=== PATIENT | male | born 1995 | race Caucasian/White ===

== ENCOUNTER 2018-12-03 14:29 | Emergency (ER) | payer MEDICAID, SELFPAY ==
[2018-12-03] VITALS (12 sets, daily range): BP systolic 134–171; BP diastolic 79–112; PULSE 72–99; RESP 14–18; TEMP 36.9; O2SAT 98–100; BMI 24.0
--- NOTE | 2018-12-03 15:09 | ED.VISSUMM ---
- ER Visit Summary Date of Service: 12/03/18 Chief Complaint: Depressed and suicidal ideation and attempt History of Present Illness: The patient is a 23 M history of bipolar, ADHD and depression. Also history of drug abuse including methamphetamines, heroin and acid. Patient states he has been more depressed lately. Today he was trying to hang himself when Associates and found him and called the rubber goods assembler department. He brought them in. He said in the past he has cut himself. He has had no prior attempts. Physical Examination: Young male no acute distress. Vital signs are stable afebrile. He is tearful. HEENT exam unremarkable. His neck is no signs of trauma nor any tenderness. There is no bruising. Minimal goldstein. Lungs clear to auscultation bilaterally. Heart regular rhythm no murmur. Chest nontender. Abdomen soft nontender. Extremities moves all 4. Neurovascular intact. No acute trauma. Old scars on his forearm from prior lacerations that are now well-healed. Back nontender. Neurologically he is awake alert with no focal motor deficits. Test Results: CBC normal. White count 7. Hemoglobin 14. Chemistries unremarkable. Normal gap of 8. Alcohol level negative. 5. Tox pending. Emergency Department Course and Treatment: ED mental health laboratory work-up and crisis evaluation Patient doing well repeat exam at 1633. He is Garo been evaluated by crisis is making arrangements for him to be transferred to a psychiatric facility. Treatment Plan: [] Disposition: [] Impression: Acute exacerbation of bipolar disorder Acute suicide attempt by hanging This note was generated with [employer] dictation software. It may contain incorrect words, spelling, and punctuation that were not noted in review of the chart prior to signing ED Disposition - Plan for ED Patient: Referrals: Jg Morataya MD [Primary Care Provider] -
--- NOTE | 2018-12-03 15:09 | NURSING ---
CALLED [facility]. LEFT MESSAGE
--- NOTE | 2018-12-03 15:15 | ED.DCSUM_ITS ---
- ER Visit Summary Date of Service: 12/03/18 Chief Complaint: Depressed and suicidal ideation and attempt History of Present Illness: The patient is a 23 M history of bipolar, ADHD and depression. Also history of drug abuse including methamphetamines, heroin and acid. Patient states he has been more depressed lately. 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 He brought them in. He said in the past he has cut himself. He has had no prior attempts. Physical Examination: Young male no acute distress. Vital signs are stable afebrile. He is tearful. HEENT exam unremarkable. His neck is no signs of trauma nor any tenderness. There is no bruising. Minimal goldstein. Lungs clear to auscultation bilaterally. Heart regular rhythm no murmur. Chest nontender. Abdomen soft nontender. Extremities moves all 4. Neurovascular intact. No acute trauma. Old scars on his forearm from prior lacerations that are now well-healed. Back nontender. Neurologically he is awake alert with no focal motor deficits. Test Results: CBC normal. White count 7. Hemoglobin 14. Chemistries unremarkable. Normal gap of 8. Alcohol level negative. 5. Tox pending. Emergency Department Course and Treatment: ED mental health laboratory work-up and crisis evaluation Patient doing well repeat exam at 1633. He is Garo been evaluated by crisis is making arrangements for him to be transferred to a psychiatric facility. Treatment Plan: [] Disposition: [] Impression: Acute exacerbation of bipolar disorder Acute suicide attempt by hanging This note was generated with [email or web address] dictation software. It may contain incorrect words, spelling, and punctuation that were not noted in review of the chart prior to signing ED Disposition - Plan for ED Patient: Referrals: Jg Morataya MD [Primary Care Provider] -
--- NOTE | 2018-12-03 15:21 | CM.ED ---
[facility]IAL WORK DISCUSSED CASE WITH DR. LOPEZ. PATIENT TO BE EVALUATED BY CRISIS ONCE MEDICALLY CLEARED. PER DR. LOPEZ, PATIENT WITH SUICIDAL IDEATIONS, ATTEMPTED TO HANG HIMSELF. JELENA GOULD, [employer], TUBE WRAPPER.
--- NOTE | 2018-12-03 15:23 | NURSING ---
SHELLY, CRISIS, CALLED BACK. SOMEONE WILL BE OVER.
[2018-12-03 15:24] LABS: Absolute Lymphocyte Count 1.31 X10^3/ul (0.83-4.51); Absolute Neutrophil Count 5.8 X10^3/uL (2.0-7.7); Basophil# 0.01 X10^3/uL; Basophil% 0.1 % (0-1); Eosinophil# 0.04 X10^3/uL; Eosinophils% 0.5 % (0-5); Hematocrit 42.1 % (40-54); Hemoglobin 14.4 g/dl (13.0-16.5); Lymphocyte # 1.31 X10^3/ul (4.0); Lymphocyte % 16.6 % (19-41); Mean Corp Hgb Conc 34.2 g/gl (32-36); Mean Corpuscular Hgb 30.8 pg (27.0-32.0); Mean Platelet Vol. 10.3 fl (6.2-12.0); Monocyte# 0.72 X10^3/uL; Monocyte% 9.1 % (0-10); Neutrophil # 5.83 X10^3/uL (2.7-7.7); Neutrophil % 73.7 % (47-70); Platelet Count 195 K/mm3 (150-450); Red Blood Count 4.68 M/mm3 (4.6-6.2); White Blood Count 7.9 K/mm3 (4.4-11.0)
[2018-12-03 15:32] LABS: POSITIVE COUNT NO; POSITIVE DIFFERENTIAL NO; POSITIVE MORPHOLOGY NO
[2018-12-03 16:01] LABS: Anion Gap 8 (5-15); BUN 13 mg/dL (7-18); BUN/Creat Ratio 15.2 RATIO (10-20); Calcium,Total 9.1 mg/dL (8.5-10.1); Chloride 108 mmol/L (98-107); Creatinine, Serum 0.86 mg/dL (0.70-1.30); EST Glomerular Filtration Rate 118 mL/min (>60); Est Glom Filt Rate - Afr Amer 143 mL/min (>60); Glucose 100 mg/dL (74-106); Potassium 3.9 mmol/L (3.5-5.1); Sodium Level 141 mmol/L (136-145)
[2018-12-03 16:34] LABS: Amphetamine Urine VISTA NEGATIVE (<1000 ng/mL); Barbiturate Urine VISTA NEGATIVE (< 200 ng/mL); Benzodiazepine Urine VISTA NEGATIVE (< 200 ng/mL); Cocaine Urine VISTA NEGATIVE (< 300 ng/mL); Ecstacy Urine VISTA NEGATIVE (< 500 ng/mL); Methadone Urine VISTA NEGATIVE (< 300 ng/mL); PCP Urine VISTA NEGATIVE (< 25 ng/mL); THC Urine VISTA POSITIVE (< 50 ng/mL); Vista UDS pH Range 6
--- NOTE | 2018-12-03 18:09 | ED.RN ---
PT REFUSES TO EAT MEAL GIVEN TO HIM.
[2018-12-03] MEDS: LORazepam 1 MG Tablet PO ×2 (19:07→20:59)
--- NOTE | 2018-12-03 22:38 | ED.RN ---
[facility] ACCEPTED. DR QUISPE DUAL DIAGNOSIS UNIT. NURSE TO NURSE [phone] OPTION 1
--- NOTE | 2018-12-03 22:48 | NURSING ---
CALLED [facility] AT 223 SAID NO AVAILABILITY TILL 8:30A CALLED [facility] @ 2241 SAID NO AVAILABILITY PERIOD CALLED [facility] @ [id number] WAS ALSO TOLD NO AVAILABILITY
--- NOTE | 2018-12-03 22:49 | NURSING ---
SET UP TRANSPORT WITH [facility] FOR 8:30A
[2018-12-04] VITALS (9 sets, daily range): BP systolic 128–134; BP diastolic 82–89; PULSE 76–85; RESP 14–17; O2SAT 100
--- NOTE | 2018-12-04 01:03 | ED.RN ---
THIS NURSE CALLED [facility] TO GIVE REPORT, THEY REQUESTED FOR REPORT TO BE GIVEN CLOSER TO HIS TIME OF TRANSFER. WILL GIVE REPORT TO [facility] IN THE MORNING.
[2018-12-04] MEDS: Ziprasidone IM 20 MG/ML VIAL 10 MG IM ×2 (02:12→09:18)
--- NOTE | 2018-12-04 05:39 | ED.RN ---
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 PER THE SITTER HE STATED HE CUT A RABBIT IN HALF WITH A SHOVEL AND FED ANOTHER TO HIS DOG.
== END 2018-12-04 09:30 ==
LOC: ED 15:19
PROVIDERS: Emergency Provider Emergency Medicine; Family Provider Family Medicine; PCP Family Medicine
DX: T14.91XA Suicide attempt, initial encounter (principal); F31.9 Bipolar disorder, unspecified; F90.9 Attention-deficit hyperactivity disorder, unspecified type; Z72.0 Tobacco use
CPT/HCPCS: 80048; 80307; 80320; 85025; 96372; 99284; G0480; J3486